=== PATIENT | female | born 1995 | race Caucasian/White ===

== ENCOUNTER 2017-01-21 23:32 | Emergency (ER) | payer OTHER ==
[2017-01-22 04:47] VITALS: BP 113/83
== END 2017-01-22 04:49 | disposition home or self-care (01) ==
LOC: ED 23:32
DX: O26.891 Other specified pregnancy related conditions, first trimester (principal); S06.0X0A Concussion without loss of consciousness, initial encounter; S16.1XXA Strain of muscle, fascia and tendon at neck level, initial encounter; Z3A.01 Less than 8 weeks gestation of pregnancy; Y04.8XXA Assault by other bodily force, initial encounter; Y93.89 Activity, other specified; Y99.8 Other external cause status; Y92.89 Other specified places as the place of occurrence of the external cause
CPT/HCPCS: J1885